=== PATIENT | male | born 1955 | race Caucasian/White ===

== ENCOUNTER → 2016-09-15 | Day surgery (SDC) | payer OTHER ==
[~2016-09-15] VITALS: Ht 180.3 cm; Wt 111.3 kg
[~2016-09-15] MED LIST: *HYDROmorphone PF 1 MG VIAL PERIprocedural Use ONLY ONE; *morphine SULFATE 8 MG/ML PERIprocedure ONLY ONE; ACETAMINOPHEN 1000 MG/100 ML VIAL IV ONE; ACETAMINOPHEN/HYDROcodone 325 MG/10 MG TAB PO PRN; ALBU0.63 NEB; BUPIVACAINE/EPINEPHRINE 0.25% 50 ML VIAL INFIL ONE; CHLORHEXIDINE GLUCONATE 2 % 1 PACK (2 CLOTHS) TOPICAL PRN; CHLORHEXIDINE GLUCONATE 4% SOLN 120 ML BTL TOPICAL SCH; DO NOT ADM ANY ANTICOAGULANT DRUGS PRN; FAMOTIDINE 20 MG/2 ML VIAL ONE; GENTAMICIN SULFATE 80 MG/2 ML VIAL ONE; INSULIN HUMAN REGULAR 1,000 UNITS/10 ML VIAL SQ PRN; IPRAAER INH; KETAMINE HCL 500 MG/5 ML VIAL ONE; LACT10SO PO; LACTATED RINGER'S 1000 ML IV PRN; METOPROLOL TARTRATE 25 MG TAB PO PRN; MIDAZOLAM HCL 2 MG/2 ML VIAL ONE; NALO1TAB PO; NEOSTIGMINE 3 MG/3 ML SYR IV ONE; ONDANSETRON HCL 4 MG/2 ML VIAL IV PUSH ONE; OXYC-405 PO; OXYC60TA8 PO; POVIDONE IODINE 5% (ANTISEPSIS KIT) 4 APPLICATIONS EACH NARE PRN; PROPOFOL 200 MG/20 ML AMP IV ONE; RESP: ALBUTEROL 2.5 MG/3 ML NEB (SCH) ONE; SODIUM CHLORID 0.9% 500 ML IV PRN; SUGAMMADEX SODIUM 200 MG/2 ML VIAL IV PUSH ONE; ceFAZolin 2 GM PREMIX 50 ML IV SCH; ceFAZolin INJ 1,000 MG VIAL ONE; fentaNYL CITRATE 250 MCG/5 ML AMP ONE; methylPREDNISolone SOD SUCC 125 MG/2 ML VIAL ONE
[2016-09-15 10:20] VITALS: BP 151/86; PULSE 84; RESP 18; TEMP 98.3; O2SAT 96
--- NOTE | 2016-09-15 16:42 | RADRPT ---
EXAM DATE/TIME: 09/15/2016 14:24 [place] COMPARISON: FLUOROSCOPY PORTABLE UP TO 1HR, September 15, 2016, 0:00. INDICATIONS : Level Localization L3,L4. MEDICAL HISTORY : None. SURGICAL HISTORY : None. ENCOUNTER: Initial ACUITY: 1 day PAIN SCORE: Non-responsive. LOCATION: Lumbar spine. FINDINGS: Exam for level localization demonstrates localization rods at the L3-4 level. CONCLUSION: 1. Localization rods are focused at the L3-4 level. Jarret Willis MD on September 15, 2016 at 16:40 Board Certified Radiologist. This report was verified electronically.
[2016-09-15 16:58] VITALS: BP 143/72; PULSE 84; RESP 16; TEMP 97.8; O2SAT 93
--- NOTE | 2016-10-04 09:35 | MP ---
cc: THANH EPSTEIN M.D. DATE OF OPERATION 09/15/2016 PREOPERATIVE DIAGNOSIS 1. L3-4 moderately severe spinal stenosis. 2. Lumbar spine degenerative disease osteoarthritis. 3. Bilateral lumbar radiculitis with bilateral lower extremity weakness. POSTOPERATIVE DIAGNOSIS 1. L3-4 moderately severe spinal stenosis. 2. Lumbar spine degenerative disease osteoarthritis. 3. Bilateral lumbar radiculitis with bilateral lower extremity weakness. PROCEDURE L3-4 bilateral hemilaminectomy, foraminotomy, partial facetectomy, with decompression of the nerve root. SURGEON [place] Epstein MD DIRECTOR [employer] Itzel Eduardo PA-C ANESTHESIA General SPECIMENS None ESTIMATED BLOOD LOSS Minimal COMPLICATIONS None PLAN See orders. PROCEDURE The patient brought into the operating room and had satisfactory general endotracheal anesthesia by the Department of Anesthesia. The patient was carefully transferred onto the spinal frame. All pressure points were well-padded. The lumbosacral spine was prepped and draped in the usual sterile manner. A localizing x-ray was used to confirm the L3-4 interspace. 0.25% Marcaine with epinephrine was used to anesthetize the operative site. A small midline incision made over L3-4. Dissection carried through skin and subcutaneous tissue. The paraspinal muscles were gently removed from the elements at L3-4. Again, a localizing x-ray was used for the L3-4 interspace. A bilateral decompressive hemilaminectomy was performed at L3-4. Bilateral foraminotomy, partial facetectomy. Patient was found to have moderately severe to severe spinal stenosis. A very satisfactory decompression of the neurologic elements was performed. The patient had no evidence of any CSF leaks. No evidence of any bleeding. The wound was irrigated with copious amounts of sterile saline antibiotic solution. The wound itself was dry. The wound was closed in multiple layers. The fascia was closed with #2 Tycron suture. Subcutaneous tissue closed in layers with 2-0 Vicryl and the skin was approximated with multiple interrupted 2-0 nylon. Sterile dressings were applied. The patient tolerated the procedure well and arrived in the Recovery Room in stable and satisfactory condition. MD LENARD Alvarez/IMELDA /11:17 AM /9:33 AM
== END | disposition home or self-care (01) ==
LOC: HSDC 09:47
PROVIDERS: ATTEND Orthopaedic Surgery Orthopaedic Surgery of the Spine
DX: M51.36 Other intervertebral disc degeneration, lumbar region (principal); M48.06 Spinal stenosis, lumbar region; M54.16 Radiculopathy, lumbar region; J44.9 Chronic obstructive pulmonary disease, unspecified; K21.9 Gastro-esophageal reflux disease without esophagitis; F17.200 Nicotine dependence, unspecified, uncomplicated; R53.1 Weakness
CPT/HCPCS: 00630; 63030; 72020; 76000; 94664; J0131; J0690; J1170; J1580; J2250; J2270; J2405; J2710; J2930; J3010; J7120; J7613